=== PATIENT | female | born 1995 | race Caucasian/White ===

== ENCOUNTER 2017-07-15 19:54 | Emergency (ER) | payer OTHER ==
[2017-07-15 20:12] VITALS: RESP 16
[2017-07-15 20:30] LABS: COLOR YELLOW; LEUKOCYTE ESTERASE,URINE 1+ (NEGATIVE); NITRITE,URINE NEGATIVE (NEGATIVE); PH,URINE 5.5 (5.0-7.5)
[2017-07-15 20:32] LABS: RBC,URINE 50-182 /hpf (0-3); WBC,URINE 50-182 /hpf (0-3)
[2017-07-15 20:33] LABS: BACTERIA 2+ /hpf (NONE SEEN)
--- NOTE | 2017-07-15 21:07 | EDPHY ---
H & P Time Seen by Provider: 07/15/17 20:01 HPI/ROS: CHIEF COMPLAINT: Dysuria History by patient HISTORY OF PRESENT ILLNESS: 22-year-old woman presents complaining of 24 hours of dysuria, urgency, frequency and hesitancy. She denies any fever, chills, nausea or vomiting. She has had some very mild low back pain. She denies any vaginal bleeding discharge. She took some azo at home with no relief. She is on acyclovir for herpes and took this with no change however she denies any herpes lesions. REVIEW OF SYSTEMS: As in HPI, and all other systems reviewed and are negative Smoking Status: Current every day smoker Physical Exam: General Appearance: Alert, comfortable, well appearing. Eyes: Pupils equal and round no pallor or injection. Respiratory: Normal, effort, lungs are clear to auscultation. No wheezes, rales or rhonchi. Cardiovascular: Regular rate and rhythm. S1, S2, no murmurs, gallops or rubs appreciated Gastrointestinal: Abdomen is soft and nontender, no masses, bowel sounds normal. Back: No CVA tenderness, no bony tenderness Neurological: Awake, alert and oriented x 3, no pronator drift, normal gait, no pronator drift Skin: Warm and dry, no rashes. Musculoskeletal: No deformities or tenderness. Extremitie:s full range of motion, no edema Psychiatric: Patient has normal affect, there is no agitation. Constitutional: Initial Vital Signs Temperature (C) 36.7 C 07/15/17 19:56 Heart Rate 92 07/15/17 19:56 Respiratory Rate 16 07/15/17 19:56 Blood Pressure 140/80 H 07/15/17 19:56 O2 Sat (%) 99 07/15/17 19:56 O2 Delivery Mode Room Air Allergies/Adverse Reactions: codeine Allergy (Verified 07/15/17 20:07) Home Medications: Medication Instructions Recorded Acyclovir 07/15/17 Azo 07/15/17 Nitrofurantoin Monohyd/M-Cryst 100 mg PO BID #10 capsule 07/15/17 [Macrobid 100 mg Capsule] MDM/Departure - [facility] ED Course/Re-evaluation: 21-year-old woman presents with UTI symptoms and no evidence of systemic toxicity or pyelonephritis. Urinalysis is consistent with acute urinary tract infection the patient is started on Macrobid. We discussed return precautions. - Depart Disposition: Home, Routine, Self-Care Clinical Impression: Urinary tract infection Qualifiers: Urinary tract infection type: site unspecified Hematuria presence: with hematuria Qualified Code(s): N39.0 - Urinary tract infection, site not specified ; R31.9 - Hematuria, unspecified Condition: Good Instructions: Urinary Tract Infection in Women (ED) Additional Instructions: You were seen by Dr. Lynne Mendez today. You have a urinary tract infection. You may continue to take azo for symptoms but he must take antibiotics to cure the infection. Take antibiotics as prescribed. Return for any worsening or new concerns. Prescriptions: Nitrofurantoin Monohyd/M-Cryst [Macrobid 100 mg Capsule] 100 mg PO BID #10 capsule Referrals: UNK,UNKNOWN [Other] - As per Instructions
[2017-07-15 21:16] VITALS: BP 116/67; PULSE 78; TEMP 98.4; O2SAT 98
== END 2017-07-15 21:15 | disposition home or self-care (01) ==
LOC: CED 19:54
DX: N39.0 Urinary tract infection, site not specified (principal); F17.200 Nicotine dependence, unspecified, uncomplicated; B96.89 Other specified bacterial agents as the cause of diseases classified elsewhere
CPT/HCPCS: 81003-PO; 81015-PO; 81025-PO